=== PATIENT | female | born 2000 | race Caucasian/White ===

== ENCOUNTER → 2018-04-05 16:28 | Outpatient (CLI) | payer OTHER, SELFPAY ==
--- NOTE | 2018-04-05 | LES_PTH ---
PATIENT: TYLER SANDOVAL LOC: [facility] U#:[id number] AGE/SX: / ROOM: RE04/05/[address]: Dr. Moise Arredondo DDS : 2000 BED: DIS: SPEC #: [id number] RECD: 04/05/18 15:57 STATUS: ALLI RAY #: [id number] ALEC: 04/05/18 00:[address]: Moise Arredondo DEPT: SURGICAL PATHOLOGY RECD BY: Nikhil Randolph ENTERED: 04/06/18 08:43 SP TYPE: Lesion OTHR DR: Dr. Morris Samano MD Tissues: Mandible, NOS Procedures: Decalcification bone/plaque Surgery Specimen Level IV HEADER OPERATION: Biopsy mandible PRE-OP DIAGNOSIS: Odontoma TISSUE SUBMITTED: Left mandible, soft tissue and several calcified teeth MICROSCOPIC DIAGNOSIS Left mandible, biopsy: Consistent with odontoma. . SJ: roberto 04/10/18 COMMENT Correlation with clinical, radiologic findings and appropriate follow up are necessary. Case has been reviewed in consultation with Dr. Purcell who concurs with the above diagnosis. IDC:AM MICROSCOPIC DESCRIPTION Slides are reviewed. GROSS DESCRIPTION Received in fixative is one container labeled with the patient's name and designated area 29-30 teeth. The specimen consists of five variable sized fragments of dejesus-white, indurated, calcified tissue measuring in aggregate 1 x 0.5 x 0.3 cm. Also present in the container are multiple fragments of blood clot measuring in aggregate 1 x 0.5 x 0.2 cm. The entire specimen is submitted in one cassette after decalcification. / SJ:dorys 04/06/18 TC: 1 CPT:11111, 14377
== END ==
PROVIDERS: Family Provider Family Medicine; PCP Family Medicine; Visit Provider Dentist Oral and Maxillofacial Surgery
DX: D16.5 Benign neoplasm of lower jaw bone (principal)
CPT/HCPCS: 88305; 88311